=== PATIENT | female | born 1960 | race Caucasian/White ===

== ENCOUNTER 2017-02-25 09:22 | Outpatient (CLI) | payer BC ==
--- NOTE | 2017-02-25 12:48 | RAD ---
PA AND LATERAL CHEST X-RAY: 02/25/2017 HISTORY: Dyspnea. COMPARISON: 05/08/2010 FINDINGS: The cardiac silhouette and pulmonary vasculature are within normal limits. A large calcified right paramediastinal lymph node is again seen. Nodular densities are seen in the mid lung zones bilatera lly, most compatible with nipple shadows. The lungs are otherwise clear. The lungs do appear hyper inflated. There is osteopenia. No other interval change. IMPRESSION: 1. No acute cardiopulmonary process. 2. Hyperinflation of the lungs. POS: [facility]
== END 2017-02-25 09:23 | disposition home or self-care (01) ==
LOC: RAD 09:22
PROVIDERS: ATTEND Internal Medicine
DX: R06.00 Dyspnea, unspecified (principal); J98.4 Other disorders of lung; R05 Cough
CPT/HCPCS: 36415; 71020; 82565

== ENCOUNTER 2017-05-16 08:11 | Emergency (ER) | payer BC ==
[2017-05-16] MEDS ORDERED: Ondansetron HCl/PF 4 MG/2 ML Vial ONE (08:35)
[2017-05-16 08:42] LABS: #Basophils 0.1 thou/uL (0.0-0.2); #Eosinphils 0.2 thou/uL (0.0-0.7); #Lymphocytes 1.2 thou/uL (1.20-3.40); #Monocytes 0.5 thou/uL (0.11-0.59); #Neutrophils 3.1 thou/uL (1.40-6.50); %Basophils 1.7 % (0.0-1.0); %Eosinophils 3.7 % (0.0-10.0); %Lymphocytes 23.1 % (21.0-51.0); %Monocytes 9.4 % (0.0-10.0); %Neutrophils 62.1 % (42.0-75.0); Hemoglobin 14.9 g/dL (12.0-16.0); Mean Corpuscular HGB CONC 32.8 g/dL (32.0-36.0); Mean Corpuscular Volume 91.5 fl (81.0-99.0); Mean Platelet Volume 6.4 fL (7.4-10.4); Platelet Count 304 thou/uL (130-400); RBC Distribution Width 12.1 % (11.5-14.5); Red Blood Cell (RBC) Count 4.97 mill/uL (4.20-5.40)
[2017-05-16 09:04] LABS: ALT (SGPT) 26 U/L (8-55); AST (SGOT) 23 U/L (5-34); Albumin 4.1 g/dL (3.5-5.0); Alkaline Phosphatase 130 U/L (40-150); Anion Gap 15 mmol/L (10-20); BUN (Urea Nitrogen) 8 mg/dL (9.8-20.1); Bilirubin, Total 0.5 mg/dL (0.2-1.2); Calc. Creatinine Clearance 0 mL/min (70-130); Calcium 9.8 mg/dL (7.8-10.44); Carbon Dioxide 26 mmol/L (22-29); Chloride 104 mmol/L (98-107); Estimated GFR-MDRD 89; Glucose 101 mg/dL (70-105); Potassium 3.8 mmol/L (3.5-5.1); Protein, Total 7.1 g/dL (6.0-8.3); Sodium 141 mmol/L (136-145)
--- NOTE | 2017-05-16 09:09 | RAD ---
FRONTAL RADIOGRAPH CHEST PORTABLE UPRIGHT: DATE: 05/16/17. COMPARISON: 02/07/17. HISTORY: Pneumonia, shortness of breath, nausea. FINDINGS: Calcified lymph nodes are noted in the mediastinum, primarily the right paratracheal region. Bibasil ar nodular densities are noted suggesting nipple shadows. There is no pneumothorax, pleural effusion, focal consolidation, or alveolar edema. There is mild diffuse increased linear interstitial density with pulmonary hyperinflation. Question a history of COPD. IMPRESSION: No focal consolidation or alveolar edema. Incidental findings as above. POS: [facility]
== END 2017-05-16 11:12 | disposition home or self-care (01) ==
LOC: ERS 08:11
DX: J45.909 Unspecified asthma, uncomplicated (principal); I10 Essential (primary) hypertension; F41.9 Anxiety disorder, unspecified; F32.9 Major depressive disorder, single episode, unspecified; Z87.891 Personal history of nicotine dependence
CPT/HCPCS: 36415; 71045; 80053; 85025; 93005; 94640; 96361; 96374; J2405

== ENCOUNTER 2019-06-19 08:25 | Outpatient (CLI) | payer BC ==
[2019-06-19 08:59] LABS: Estimated GFR-MDRD - POC Greater than 90
--- NOTE | 2019-06-19 11:08 | MRI ---
MRI BRAIN WITH AND WITHOUT CONTRAST: DATE: 06/19/2019. 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 TECHNIQUE: Multiple sequences obtained in axial, sagittal, and coronal planes; pre and post IV injection of gado linium-based contrast agent: 10 MultiHance. In additional to standard brain sequences, T1 coronal, M P-RAGE coronal sequence, plus FLAIR coronal were performed. FINDINGS: The ventricles are normal in size and configuration. There is no major intraaxial signal abnormality , restricted diffusion, abnormal intraaxial enhancement, mass, midline shift or any other mass effect , recent intraaxial hemorrhage, or extraaxial fluid collection. Bilateral mesial temporal lobe struc tures are symmetrical. IMPRESSION: Normal. jn[] POS: [facility]
== END 2019-06-19 08:26 | disposition home or self-care (01) ==
LOC: SCSMRI 08:25
PROVIDERS: ATTEND Psychiatry & Neurology Neurology
DX: G40.209 Localization-related (focal) (partial) symptomatic epilepsy and epileptic syndromes with complex partial seizures, not intractable, without status epilepticus (principal)
CPT/HCPCS: 70553; 82565

== ENCOUNTER 2023-01-04 13:50 | Outpatient (CLI) | payer OTHER | END 2023-01-04 13:51 | disposition home or self-care (01) | LOC: EEG 13:50 | PROVIDERS: ATTEND Psychiatry & Neurology Neurology | DX: G40.909 Epilepsy, unspecified, not intractable, without status epilepticus (principal) | CPT/HCPCS: 95816; 95957 ==